=== PATIENT | male | born 1940 | race Caucasian/White ===

== ENCOUNTER 2017-03-18 00:05 | Emergency (ER) | payer MEDICARE, OTHER ==
[2017-03-18 00:10] VITALS: PULSE 88; RESP 22; TEMP 97.4; O2SAT 98
[2017-03-18] MEDS ORDERED: DIPHENHYDRAMINE 25 MG CAP PO ONE (00:25)
[2017-03-18] MEDS ORDERED: SOLUMEDROL 125 MG/2 ML 125 MG/2 ML PDS IM ONE (00:25)
[2017-03-18] MEDS ORDERED: DIPHENHYDRAMINE 25 MG CAP ONE (00:29)
[2017-03-18] MEDS ORDERED: SOLUMEDROL 125 MG/2 ML 125 MG/2 ML PDS ONE (00:29)
[2017-03-18 00:43] VITALS: BP 163/61
== END 2017-03-18 00:38 | disposition home or self-care (01) | DRG 607 ==
LOC: ED 00:05
DX: R21 Rash and other nonspecific skin eruption (principal)
CPT/HCPCS: 99283; J2930

== ENCOUNTER 2017-09-01 15:02 | Inpatient (IN) | payer MEDICARE, OTHER ==
[2017-09-01] MEDS ORDERED: FUROSEMIDE 40 MG SOL IV ONE (15:45)
[2017-09-01] MEDS ORDERED: SODIUM CHLORIDE 0.9% FLUSH 10 ML SOL IV PRN (16:07)
[2017-09-01] MEDS ORDERED: PATIENT EDUCATION 1 MISC PRN (16:33)
[2017-09-01] MEDS: LEVOFLOXACIN 500 MG TAB PO SCH (16:44)
[2017-09-01] MEDS: SODIUM CHLORIDE 0.9% FLUSH 10 ML SOL IV SCH (16:44)
[2017-09-01] MEDS: SOLUMEDROL 125 MG/2 ML 125 MG/2 ML PDS IV SCH ×2 (16:47→21:17)
[2017-09-01] MEDS: ALBUTEROL NEB SOL 2.5MG/3ML 1 VIAL SOL NEB PRN (16:48)
[2017-09-01] MEDS: ALBUTEROL/IPRATROPIUM 1 VIAL SOL INH PRN ×2 (16:50→21:42)
[2017-09-01] MEDS ORDERED: DIPHENHYDRAMINE 25 MG CAP PO PRN (18:55)
[2017-09-01] MEDS ORDERED: INSULIN GLARGINE, RECOMBINAN 100 U/ML SOL SC SCH (21:00)
[2017-09-01] MEDS: FUROSEMIDE 80 MG TAB PO SCH (21:17)
[2017-09-01] MEDS: BENZONATATE 200 MG SGL PO SCH (21:17)
[2017-09-01] MEDS: PREGABALIN 75 MG CAP PO SCH (21:17)
[2017-09-01] MEDS: NOVOLOG FLEXPEN SC SCH (22:48)
[2017-09-02] MEDS: SODIUM CHLORIDE 0.9% FLUSH 10 ML SOL IV SCH ×3 (00:30→16:54)
[2017-09-02] MEDS: ALBUTEROL/IPRATROPIUM 1 VIAL SOL INH PRN (06:54)
[2017-09-02] MEDS ORDERED: POTASSIUM CHLORIDE 10 MEQ CAPSULE PO SCH (09:00)
[2017-09-02] MEDS ORDERED: LISINOPRIL 5 MG TAB PO SCH (09:00)
[2017-09-02] MEDS ORDERED: LIRAGLUTIDE 18 MG/3 ML SC SCH ×2 (09:00→12:00)
[2017-09-02] MEDS ORDERED: ENOXAPARIN 40 MG SOL SC SCH (09:00)
[2017-09-02] MEDS ORDERED: PANTOPRAZOLE SODIUM 40 MG ECT PO SCH (09:00)
[2017-09-02] MEDS ORDERED: INSULIN GLARGINE, RECOMBINAN 100 U/ML SOL SC SCH (09:00)
[2017-09-02] MEDS ORDERED: MAGNESIUM OXIDE 400 MG TAB PO SCH (09:00)
[2017-09-02] MEDS ORDERED: DULOXETINE HCL 20 MG ECC PO SCH (09:00)
[2017-09-02] MEDS ORDERED: DILTIAZEM ER 120 MG C24 PO SCH (09:00)
[2017-09-02] MEDS ORDERED: ATORVASTATIN 10 MG TAB PO SCH (09:00)
[2017-09-02] MEDS: SOLUMEDROL 125 MG/2 ML 125 MG/2 ML PDS IV SCH (09:02)
[2017-09-02] MEDS: NOVOLOG FLEXPEN SC SCH ×3 (09:08→17:34)
[2017-09-02] MEDS: FUROSEMIDE 80 MG TAB PO SCH (09:19)
[2017-09-02] MEDS: LEVOFLOXACIN 500 MG TAB PO SCH (09:19)
[2017-09-02] MEDS: PREGABALIN 75 MG CAP PO SCH (09:20)
[2017-09-02] MEDS: BENZONATATE 200 MG SGL PO SCH (09:23)
[2017-09-02] MEDS: METOLAZONE 2.5 MG TAB PO SCH ×2 (09:24→12:52)
[2017-09-02 09:26] LABS: BASOPHILS % (AUTO) 0 % (0-3); EOSINOPHILS % (AUTO) 0 % (0-9); HEMATOCRIT 41 % (39-53); MEAN CORPUSCULAR HGB CONC 33.5 gm/dl (32.0-36.0); MEAN CORPUSCULAR VOLUME 87 fL (80-100); MONOCYTES % (AUTO) 1.5 % (0-12); NEUTROPHILS % (AUTO) 93.8 % (37-80)
[2017-09-02 09:32] LABS: CALCIUM 8.8 mg/dl (8.5-10.1)
[2017-09-02] MEDS ORDERED: FUROSEMIDE 80 MG TAB PO SCH (12:00)
[2017-09-02] MEDS ORDERED: SODIUM CHLORIDE 0.9% 500 ML 500 ML IV SCH (12:30)
[2017-09-02] MEDS: ALBUTEROL/IPRATROPIUM 1 VIAL SOL INH SCH ×3 (13:06→17:41)
[2017-09-02] MEDS ORDERED: TRIAMCINOLONE 0.1% CREAM CRE TOP PRN (14:31)
[2017-09-02] MEDS ORDERED: CLOTRIMAZOLE 1% CREAM TOP PRN (14:32)
[2017-09-02] MEDS ORDERED: SOLUMEDROL 125 MG/2 ML 125 MG/2 ML PDS IV SCH (15:00)
[2017-09-02 16:17] VITALS: BP 124/67; TEMP 97.7
[2017-09-02 17:05] LABS: CALCIUM 8.5 mg/dl (8.5-10.1); POTASSIUM 4.6 mMol/L (3.5-5.1)
[2017-09-02] MEDS: ALBUTEROL NEB SOL 2.5MG/3ML 1 VIAL SOL NEB PRN (17:31)
[2017-09-02 17:43] VITALS: PULSE 114; RESP 28; O2SAT 92
== END 2017-09-02 19:35 | disposition short-term general hospital (02) | DRG 206 ==
LOC: ACUTE CARE 15:11
PROVIDERS: ADMIT Family Medicine; ATTEND Family Medicine
DX: R09.02 Hypoxemia (principal); I50.9 Heart failure, unspecified; E11.9 Type 2 diabetes mellitus without complications; E66.01 Morbid (severe) obesity due to excess calories; Z68.42 Body mass index [BMI] 45.0-49.9, adult; Z79.4 Long term (current) use of insulin; I10 Essential (primary) hypertension; I87.2 Venous insufficiency (chronic) (peripheral); R60.1 Generalized edema
CPT/HCPCS: 36415; 80048; 82962; 85025; 85378; 94150; 94640; 94760; J1650; J1817; J1940; J2930; J7603; J7620; J1815

== ENCOUNTER 2017-09-25 19:27 | Emergency (ER) | payer MEDICARE, OTHER ==
[2017-09-25 19:50] VITALS: RESP 18; TEMP 98.1
[2017-09-25] MEDS ORDERED: SOLUMEDROL 125 MG/2 ML 125 MG/2 ML PDS IV ONE ×2 (19:53→19:55)
[2017-09-25] MEDS ORDERED: ALBUTEROL/IPRATROPIUM 1 VIAL SOL ONE (19:58)
[2017-09-25] MEDS ORDERED: SOLUMEDROL 125 MG/2 ML 125 MG/2 ML PDS ONE (19:58)
[2017-09-25 20:10] LABS: BASOPHILS % (AUTO) 1 % (0-3); EOSINOPHILS % (AUTO) 5 % (0-9); HEMATOCRIT 36 % (39-53); MEAN CORPUSCULAR HGB CONC 35.2 gm/dl (32.0-36.0); MEAN CORPUSCULAR VOLUME 85 fL (80-100); MONOCYTES % (AUTO) 7.5 % (0-12); NEUTROPHILS % (AUTO) 71.7 % (37-80)
[2017-09-25] MEDS ORDERED: ALBUTEROL/IPRATROPIUM 1 VIAL SOL INH ONE (20:13)
[2017-09-25 20:24] LABS: ALBUMIN 2.9 gm/dl (3.4-5.0); ALT 29 IU/L (14-63); CALCIUM 8.6 mg/dl (8.5-10.1); GLOM FILT RATE 37 mL/min (>60); POTASSIUM 3.6 mMol/L (3.5-5.1)
[2017-09-25 20:33] LABS: ABG PH 7.39 (7.35-7.45)
[2017-09-25 20:34] LABS: SODIUM 141 mMol/L (136-145)
[2017-09-25 20:41] LABS: APPEARANCE,URINE Clear; BILIRUBIN,URINE NEGATIVE (NEGATIVE); COLOR,URINE Yellow; GLUCOSE, URINE (UA) NEGATIVE (NEGATIVE); KETONES,URINE NEGATIVE (NEGATIVE); LEUKOCYTE ESTERASE ,URINE NEGATIVE (NEGATIVE); NITRATE,URINE NEGATIVE (NEGATIVE); OCCULT BLOOD,URINE NEGATIVE (NEG-TRACE); PH,URINE 5.5; UROBILINOGEN,URINE 0.2 (0.2-1.0 EU)
[2017-09-25 20:51] LABS: RBC,URINE NEG (0-3AV/HPF)
[2017-09-25 20:52] LABS: WBC,URINE 0-1 (0-5AV/HPF)
[2017-09-25 21:12] VITALS: BP 135/61; PULSE 86; O2SAT 93
== END 2017-09-25 21:35 | disposition home or self-care (01) | DRG 206 ==
LOC: ED 19:27
DX: R09.02 Hypoxemia (principal); Z99.81 Dependence on supplemental oxygen; J44.1 Chronic obstructive pulmonary disease with (acute) exacerbation
CPT/HCPCS: 36600; 71010; 80053; 81001; 82803; 83880; 84484; 85025; 93005; 96374; 99283; 99284; J2930; J7620

== ENCOUNTER 2019-02-15 08:17 | Inpatient (IN) | payer MEDICARE, OTHER ==
[2019-02-15 09:12] LABS: BASOPHILS % (AUTO) 1 % (0-3); EOSINOPHILS % (AUTO) 2 % (0-9); HEMATOCRIT 45 % (39-53); HEMOGLOBIN 14.4 gm/dl (13.5-17.7); LYMPHOCYTES % (AUTO) 9.4 % (10-50); MEAN CORPUSCULAR HEMOGLOBIN 29.5 pg (27.0-32.0); MEAN CORPUSCULAR VOLUME 92 fL (80-100); NEUTROPHILS % (AUTO) 78.1 % (37-80)
[2019-02-15 09:12] LABS: INFLUENZA A NEGATIVE (NEGATIVE); INFLUENZA B NEGATIVE (NEGATIVE)
[2019-02-15] MEDS ORDERED: ALBUTEROL/IPRATROPIUM 1 VIAL SOL INH ONE (09:14)
[2019-02-15] MEDS ORDERED: ALBUTEROL/IPRATROPIUM 1 VIAL SOL ONE (09:15)
[2019-02-15 09:20] LABS: ABG PH 7.39 (7.35-7.45)
[2019-02-15 09:23] LABS: ALBUMIN 3.1 gm/dl (3.4-5.0); ALKALINE PHOSPHATASE 85 IU/L (46-116); ALT 19 IU/L (14-63); AST 17 IU/L (15-37); BLOOD UREA NITROGEN 21 mg/dl (7-18); CALCIUM 8.6 mg/dl (8.5-10.1); CARBON DIOXIDE 31.9 mEq/L (21-32); CHLORIDE 103 mMol/L (98-107); CREATININE 1.73 mg/dl (0.80-1.30); GLUCOSE 165 mg/dl (74-106); POTASSIUM 4.2 mMol/L (3.5-5.1); SODIUM 142 mMol/L (136-145); TOTAL PROTEIN 7.2 gm/dl (6.4-8.2); TROP I < 0.017 ng/ml (0.000-0.056)
[2019-02-15] MEDS ORDERED: SOLUMEDROL 125 MG/2 ML 125 MG/2 ML PDS ONE (09:24)
[2019-02-15] MEDS ORDERED: SOLUMEDROL 125 MG/2 ML 125 MG/2 ML PDS IV ONE (09:25)
[2019-02-15] MEDS: SODIUM CHLORIDE 0.9% FLUSH 10 ML SOL IV PRN ×2 (09:25→14:45)
[2019-02-15] MEDS ORDERED: ALBUTEROL NEB SOL 2.5MG/3ML 1 VIAL SOL NEB PRN (11:44)
[2019-02-15] MEDS: ALBUTEROL/IPRATROPIUM 1 VIAL SOL INH SCH ×2 (14:17→20:09)
[2019-02-15] MEDS: AZITHROMYCIN 250 MG TAB PO SCH (14:18)
[2019-02-15] MEDS: NOVOLOG FLEXPEN SC SCH ×4 (14:22→20:54)
[2019-02-15] MEDS: SOLUMEDROL 125 MG/2 ML 125 MG/2 ML PDS IV SCH ×2 (14:45→20:10)
[2019-02-15] MEDS: ENOXAPARIN 40 MG SOL SC SCH (14:58)
[2019-02-15] MEDS ORDERED: METOLAZONE 2.5 MG TABLET ONE (16:10)
[2019-02-15] MEDS: FUROSEMIDE 80 MG TAB PO SCH (16:25)
[2019-02-15] MEDS: METOLAZONE 2.5 MG TAB PO SCH (16:26)
[2019-02-15] MEDS: DULOXETINE HCL 20 MG ECC PO SCH (16:30)
[2019-02-15] MEDS ORDERED: DILTIAZEM HYDROCHLORIDE 60 MG TAB PO ONE (16:30)
[2019-02-15] MEDS ORDERED: DILTIAZEM ER 120 MG C24 PO ONE (16:30)
[2019-02-15] MEDS: POTASSIUM CHLORIDE 10 MEQ TER PO SCH (16:31)
[2019-02-15] MEDS: ATORVASTATIN 10 MG TAB PO SCH (16:35)
[2019-02-15] MEDS: ALLOPURINOL 100 MG TAB PO SCH (16:35)
[2019-02-15] MEDS: LISINOPRIL 5 MG TAB PO SCH (16:36)
[2019-02-15] MEDS: PANTOPRAZOLE SODIUM 40 MG ECT PO SCH (16:36)
[2019-02-15] MEDS: TAMSULOSIN HYDROCHLORIDE 0.4 MG CAP PO SCH (20:15)
[2019-02-15] MEDS: PREGABALIN 75 MG CAP PO SCH (20:15)
[2019-02-15] MEDS: INSULIN GLARGINE, RECOMBINAN 100 U/ML SOL SC SCH (20:53)
[2019-02-16] MEDS: ALBUTEROL/IPRATROPIUM 1 VIAL SOL INH SCH ×5 (00:34→23:15)
[2019-02-16] MEDS: SODIUM CHLORIDE 0.9% FLUSH 10 ML SOL IV PRN ×2 (02:58→17:19)
[2019-02-16] MEDS: SOLUMEDROL 125 MG/2 ML 125 MG/2 ML PDS IV SCH ×4 (02:58→20:30)
[2019-02-16 07:24] LABS: BASOPHILS % (AUTO) 0 % (0-3); EOSINOPHILS % (AUTO) 0 % (0-9); HEMATOCRIT 45 % (39-53); HEMOGLOBIN 14.6 gm/dl (13.5-17.7); LYMPHOCYTES % (AUTO) 8.3 % (10-50); MEAN CORPUSCULAR HGB CONC 32.5 gm/dl (32.0-36.0); MEAN CORPUSCULAR VOLUME 92 fL (80-100); MONOCYTES % (AUTO) 3.4 % (0-12); NEUTROPHILS % (AUTO) 87.9 % (37-80)
[2019-02-16 07:29] LABS: CALCIUM 8.5 mg/dl (8.5-10.1); CARBON DIOXIDE 30.8 mEq/L (21-32); CREATININE 2.16 mg/dl (0.80-1.30)
[2019-02-16] MEDS: PANTOPRAZOLE SODIUM 40 MG ECT PO SCH (08:49)
[2019-02-16] MEDS: AZITHROMYCIN 250 MG TAB PO SCH (08:49)
[2019-02-16] MEDS: ATORVASTATIN 10 MG TAB PO SCH (08:50)
[2019-02-16] MEDS: ALLOPURINOL 100 MG TAB PO SCH (08:50)
[2019-02-16] MEDS: LISINOPRIL 5 MG TAB PO SCH (08:50)
[2019-02-16] MEDS: POTASSIUM CHLORIDE 10 MEQ TER PO SCH (08:51)
[2019-02-16] MEDS: FUROSEMIDE 80 MG TAB PO SCH ×2 (08:51→14:37)
[2019-02-16] MEDS: DILTIAZEM ER 120 MG C24 PO SCH (08:51)
[2019-02-16] MEDS: DULOXETINE HCL 20 MG ECC PO SCH (08:52)
[2019-02-16] MEDS: METOLAZONE 2.5 MG TAB PO SCH ×2 (08:52→12:24)
[2019-02-16] MEDS: NOVOLOG FLEXPEN SC SCH ×8 (08:59→21:21)
[2019-02-16] MEDS: ENOXAPARIN 40 MG SOL SC SCH (08:59)
[2019-02-16] MEDS ORDERED: DILTIAZEM ER 120 MG C24 PO SCH ×3 (09:00)
[2019-02-16] MEDS ORDERED: DILTIAZEM HYDROCHLORIDE 60 MG TAB PO SCH (09:00)
[2019-02-16] MEDS: INSULIN GLARGINE, RECOMBINAN 100 U/ML SOL SC SCH ×2 (09:01→21:22)
[2019-02-16] MEDS: LIRAGLUTIDE 1.8 MG SQ SCH (09:02)
[2019-02-16] MEDS: PREGABALIN 75 MG CAP PO SCH ×2 (09:09→20:35)
[2019-02-16] MEDS ORDERED: NOVOLOG FLEXPEN SC SCH ×2 (12:15→14:30)
[2019-02-16] MEDS: TAMSULOSIN HYDROCHLORIDE 0.4 MG CAP PO SCH (20:34)
[2019-02-16] MEDS ORDERED: NOVOLOG FLEXPEN SC ONE ×2 (21:00)
[2019-02-17] MEDS: ALBUTEROL/IPRATROPIUM 1 VIAL SOL INH SCH ×3 (06:15→18:05)
[2019-02-17 07:17] LABS: CALCIUM 8.4 mg/dl (8.5-10.1); CREATININE 3.36 mg/dl (0.80-1.30); POTASSIUM 3.9 mMol/L (3.5-5.1)
[2019-02-17] MEDS: FUROSEMIDE 80 MG TAB PO SCH ×2 (08:48→14:36)
[2019-02-17] MEDS: NOVOLOG FLEXPEN SC SCH ×7 (08:49→20:58)
[2019-02-17] MEDS: INSULIN GLARGINE, RECOMBINAN 100 U/ML SOL SC SCH ×2 (08:51→20:53)
[2019-02-17 08:53] LABS: ABG PH 7.35 (7.35-7.45)
[2019-02-17] MEDS: LIRAGLUTIDE 1.8 MG SQ SCH (08:56)
[2019-02-17] MEDS: ENOXAPARIN 40 MG SOL SC SCH (08:57)
[2019-02-17] MEDS: SOLUMEDROL 125 MG/2 ML 125 MG/2 ML PDS IV SCH ×2 (08:57→20:51)
[2019-02-17] MEDS: SODIUM CHLORIDE 0.9% FLUSH 10 ML SOL IV PRN (08:59)
[2019-02-17] MEDS: AZITHROMYCIN 250 MG TAB PO SCH (09:00)
[2019-02-17] MEDS: ALLOPURINOL 100 MG TAB PO SCH (09:01)
[2019-02-17] MEDS: ATORVASTATIN 10 MG TAB PO SCH (09:01)
[2019-02-17] MEDS: LISINOPRIL 5 MG TAB PO SCH (09:01)
[2019-02-17] MEDS: PANTOPRAZOLE SODIUM 40 MG ECT PO SCH (09:01)
[2019-02-17] MEDS: POTASSIUM CHLORIDE 10 MEQ TER PO SCH (09:02)
[2019-02-17] MEDS: PREGABALIN 75 MG CAP PO SCH ×2 (09:04→20:52)
[2019-02-17] MEDS: DULOXETINE HCL 20 MG ECC PO SCH (09:06)
[2019-02-17] MEDS: DILTIAZEM ER 120 MG C24 PO SCH (09:07)
[2019-02-17] MEDS: TAMSULOSIN HYDROCHLORIDE 0.4 MG CAP PO SCH (20:52)
[2019-02-18] MEDS: ALBUTEROL/IPRATROPIUM 1 VIAL SOL INH SCH ×2 (02:24→06:20)
[2019-02-18 07:29] LABS: BASOPHILS % (AUTO) 0 % (0-3); EOSINOPHILS % (AUTO) 0 % (0-9); HEMATOCRIT 45 % (39-53); LYMPHOCYTES % (AUTO) 6.1 % (10-50); MEAN CORPUSCULAR HEMOGLOBIN 29.1 pg (27.0-32.0); MEAN CORPUSCULAR HGB CONC 31.2 gm/dl (32.0-36.0); MEAN CORPUSCULAR VOLUME 93 fL (80-100); MONOCYTES % (AUTO) 3.4 % (0-12); NEUTROPHILS % (AUTO) 90.3 % (37-80)
[2019-02-18 07:36] LABS: CALCIUM 8.2 mg/dl (8.5-10.1); CARBON DIOXIDE 26.7 mEq/L (21-32); CREATININE 4.48 mg/dl (0.80-1.30); POTASSIUM 4.3 mMol/L (3.5-5.1)
[2019-02-18 08:31] VITALS: BP 153/67; TEMP 97.8
[2019-02-18] MEDS: SOLUMEDROL 125 MG/2 ML 125 MG/2 ML PDS IV SCH (08:39)
[2019-02-18] MEDS ORDERED: SODIUM CHLORIDE 0.9% 1000ML 1,000 ML IV ONE (08:39)
[2019-02-18] MEDS: NOVOLOG FLEXPEN SC SCH ×2 (08:40→08:53)
[2019-02-18] MEDS: INSULIN GLARGINE, RECOMBINAN 100 U/ML SOL SC SCH (08:42)
[2019-02-18] MEDS: FUROSEMIDE 80 MG TAB PO SCH (08:59)
[2019-02-18] MEDS: DILTIAZEM ER 120 MG C24 PO SCH (09:01)
[2019-02-18] MEDS: ATORVASTATIN 10 MG TAB PO SCH (09:05)
[2019-02-18] MEDS: DULOXETINE HCL 20 MG ECC PO SCH (09:16)
[2019-02-18] MEDS: PANTOPRAZOLE SODIUM 40 MG ECT PO SCH (09:16)
[2019-02-18] MEDS: LISINOPRIL 5 MG TAB PO SCH (09:16)
[2019-02-18] MEDS: ALLOPURINOL 100 MG TAB PO SCH (09:18)
[2019-02-18] MEDS: PREGABALIN 75 MG CAP PO SCH (09:19)
[2019-02-18] MEDS: ENOXAPARIN 40 MG SOL SC SCH (09:20)
[2019-02-18] MEDS: LIRAGLUTIDE 1.8 MG SQ SCH (09:20)
[2019-02-18] MEDS: POTASSIUM CHLORIDE 10 MEQ TER PO SCH (09:30)
[2019-02-18 10:23] VITALS: PULSE 98; RESP 22; O2SAT 88
[2019-02-18 10:39] LABS: APPEARANCE,URINE Clear; BILIRUBIN,URINE NEGATIVE (NEGATIVE); COLOR,URINE Yellow; GLUCOSE, URINE (UA) TRACE (NEGATIVE); KETONES,URINE NEGATIVE (NEGATIVE); LEUKOCYTE ESTERASE ,URINE NEGATIVE (NEGATIVE); NITRATE,URINE NEGATIVE (NEGATIVE); OCCULT BLOOD,URINE NEGATIVE (NEG-TRACE); UROBILINOGEN,URINE 0.2 (0.2-1.0 EU)
[2019-02-18 10:51] LABS: BACTERIA 1+ (< 1+); CRYSTALS NEGATIVE (0-3 AVE/HPF); EPITHELIAL CELLS NEGATIVE (SQUAMOUS); RBC,URINE NEGATIVE (0-3AV/HPF); WBC,URINE NEGATIVE (0-5AV/HPF)
== END 2019-02-18 10:41 | disposition short-term general hospital (02) | DRG 191 ==
LOC: ED 08:17 → ACUTE CARE 11:43 → UNDOADMIN 11:43 → ACUTE CARE 11:55
PROVIDERS: ADMIT Family Medicine; ATTEND Family Medicine
PROC: F01ZBFZ Bed Mobility Assessment using Assistive, Adaptive, Supportive or Protective Equipment (ICD-10-PCS; principal; 2019-02-17)
PROC: F01ZDFZ Gait and/or Balance Assessment using Assistive, Adaptive, Supportive or Protective Equipment (ICD-10-PCS; 2019-02-17)
DX: J44.1 Chronic obstructive pulmonary disease with (acute) exacerbation (principal); I13.0 Hypertensive heart and chronic kidney disease with heart failure and stage 1 through stage 4 chronic kidney disease, or unspecified chronic kidney disease; R05 Cough; R53.1 Weakness; R41.0 Disorientation, unspecified; R06.02 Shortness of breath; E11.22 Type 2 diabetes mellitus with diabetic chronic kidney disease; I12.9 Hypertensive chronic kidney disease with stage 1 through stage 4 chronic kidney disease, or unspecified chronic kidney disease; N18.9 Chronic kidney disease, unspecified; Z79.4 Long term (current) use of insulin; G47.30 Sleep apnea, unspecified; E66.01 Morbid (severe) obesity due to excess calories
CPT/HCPCS: 36415; 36600; 71046; 80048; 80053; 81001; 82803; 82962; 83880; 84484; 85025; 87804; 94150; 94640; 96374; 99284; 99285; J1650; J1817; J2930; A6232; A9270-GY; J1815